=== PATIENT | female | born 1970 | race Caucasian/White ===

== ENCOUNTER 2018-03-07 20:35 | Emergency (ER) | payer SELFPAY ==
[~2018-03-07] VITALS: Ht 154.9 cm; Wt 29.5 kg
[2018-03-07 20:35] VITALS: BP 153/95
--- NOTE | 2018-03-07 21:33 | NUR ---
CALLED FOR ROOM; NOT IN LOBBY OT OUTSIDE ER
--- NOTE | 2018-03-07 21:39 | NUR ---
STILL NOT IN THE LOBBY
--- NOTE | 2018-03-07 21:47 | NUR ---
CALLED AGAIN; INFORMED BY SECURITY "PT LEFT WITH FAMILY"
== END 2018-03-07 21:48 | disposition left against medical advice (07) ==
LOC: ER 20:37
DX: Z53.21 Procedure and treatment not carried out due to patient leaving prior to being seen by health care provider (principal); F41.9 Anxiety disorder, unspecified
CPT/HCPCS: A4606; Z7610